=== PATIENT | female | born 1965 | race Caucasian/White ===

== ENCOUNTER 2023-04-29 15:15 | Emergency (ER) | payer OTHER, SELFPAY ==
[2023-04-29 15:21] VITALS: BP 130/79; PULSE 79; RESP 16; O2SAT 100; BMI 39.4
--- NOTE | 2023-04-29 16:34 | XR_ITS ---
The [address] [address] Patient Name: KAUR COOMBS MRN: [id number] date: 1965 Sex: F Assigned Patient Location: ER Current Patient Location: ER Accession/Order Number: [id number] Exam Date: 04/29/2023 17:05 Report Date: 04/29/2023 17:38 At the request of: MARY JANE LOWERY Procedure: XR lumbar spine 2-3V EXAM: XR lumbar spine 2-3V HISTORY: Right lower leg pain and numbness of right foot COMPARISON: None. TECHNIQUE: 3 views FINDINGS: IMPRESSION: Maintenance of the normal lumbar lordosis. Anterolisthesis of L5 on S1 that is poorly measured on this study. Age indeterminate superior compression of the L1 vertebral body. Multilevel intervertebral disc space narrowing, endplate and facet arthropathy. Lumbar lordosis is maintained. Sacroiliac joints are normal. Electronically authenticated by: VALENTINO STRINGER Date: 04/29/2023 17:38
--- NOTE | 2023-04-29 16:36 | ED.GENADUL1 ---
HPI - General Adult General Chief complaint: Extremity Injury, Lower Stated complaint: NUMBNESS IN RIGHT FOOT, LEG CRAMPING Time Seen by Provider: 04/29/23 15:18 Source: patient Mode of arrival: Wheelchair History of Present Illness HPI narrative: 58-year-old female presents for numbness in her right foot and pain in the leg. She's had this for two days. She had a car ride of a few hours. There was no injury. No chest pain or shortness of breath. She's never had a deep vein thrombosis. Symptom is continuous and the pain is moderate. Related Data Previous Rx's Medication Instructions Recorded acetaminophen 300 mg-codeine 30 mg 1 tab PO Q6H PRN pain #20 tabs 04/29/23 tablet methylprednisolone 4 mg tablets in 4 mg PO DAILY #21 ea 04/29/23 a dose pack (Medrol (Monty)) Allergies Allergy/AdvReac Type Severity Reaction Status Date / Time No Known Drug Allergies Allergy Verified 04/29/23 15:21 Review of Systems ROS Narrative A ten point review of systems is negative except as noted above. Exam Narrative Exam Narrative: Nurses note and vital signs reviewed and patient is not hypoxic. General: The patient appears uncomfortable. Skin: Warm, dry, no pallor noted. There is no rash noted. Head: Normocephalic, atraumatic Eye: Normal conjunctiva, no drainage Ears, Nose, Mouth, and Throat: oral mucosa is moist. Nares patent. Cardiovascular: Regular Rate and Rhythm Respiratory: Patient is in no distress, no accessory muscle use, lungs are clear to auscultation, no wheezing, rales or rhonchi Back: non-tender, no bruise or rash or palpable tenderness. GI: soft and nontender Musculoskeletal: the right leg appears normal. There isbruising or rash or erythema or swelling. Dorsalis pedis pulse 2+. Capillary refill brisk. Neurological: A&O, normal speech Psychiatric: Cooperative Constitutional Vital Signs, click to edit/add: Last Vital Signs Pulse 79 04/29/23 15:21 Resp 16 04/29/23 15:21 BP 130/79 04/29/23 15:21 Pulse Ox 100 04/29/23 15:21 O2 Del Method Room Air 04/29/23 15:21 Course Vital Signs Vital signs: Vital Signs Pulse Rate 79 04/29/23 15:21 Respiratory Rate 16 04/29/23 15:21 Blood Pressure 130/79 04/29/23 15:21 Pulse Oximetry 100 04/29/23 15:21 Oxygen Delivery Method Room Air 04/29/23 15:21 Pulse Rate 79 04/29/23 15:21 Respiratory Rate 16 04/29/23 15:21 Blood Pressure 130/79 04/29/23 15:21 Pulse Oximetry 100 04/29/23 15:21 Oxygen Delivery Method Room Air 04/29/23 15:21 Medical Decision Making MDM Narrative Medical decision making narrative: d-dimer is negative. I've no clinical suspicion of deep vein thrombosis. Lumbar film result as discussed thoroughly with the patient and she is referred to PCP. Treatment diagnosis and follow-up were discussed with the patient. Differential Diagnosis Differential Diagnosis: herniated disc, bulging disc, lumbar radiculopathy Lab Data Labs: Lab Results 04/29/23 Range/Units 16:52 D-Dimer 0.48 (<=0.59) mg/L FEU Imaging Data lumbar x-rays: Radiologist's impression: age indeterminate L1 compression fracture and degenerative changes Discharge Plan Discharge Chief Complaint: Extremity Injury, Lower Clinical Impression: Arthritis, lumbar spine, Paresthesia Patient Disposition: Home, Self-Care Time of Disposition Decision: 17:55 Condition: Good Mode of Transportation: Private Vehicle Prescriptions / Home Meds: New acetaminophen-codeine 300-30 mg tablet 1 tab PO Q6H PRN (Reason: pain) Qty: 20 0RF methylprednisolone [Medrol (Monty)] 4 mg tablets,dose pack 4 mg PO DAILY Qty: 21 0RF Instructions: Paresthesia (ED), Lumbar Radiculopathy (ED) Additional Instructions: See the attached list for follow-up Stand Alone Forms: Portal Instructions Referrals: Physician,Non-Staff, MD [Primary Care Provider] - 1 week
[2023-04-29] MEDS: KETOROLAC TROMETHAMINE 60 MG/2 ML VIAL IM (16:50)
[2023-04-29 17:13] LABS: D Dimer 0.48 mg/L FEU (<=0.59)
[2023-04-29 18:08] VITALS: BP 120/75; PULSE 70; RESP 12; O2SAT 96
== END 2023-04-29 18:15 | disposition home or self-care (01) ==
PROVIDERS: Emergency Provider Emergency Medicine
DX: R20.2 Paresthesia of skin (principal); M47.816 Spondylosis without myelopathy or radiculopathy, lumbar region; M48.56XA Collapsed vertebra, not elsewhere classified, lumbar region, initial encounter for fracture
CPT/HCPCS: 36415; 72100; 85378; 96372; 99285

== ENCOUNTER 2023-11-08 06:35 | Emergency (ER) | payer OTHER, SELFPAY ==
[2023-11-08 06:40] VITALS: BP 144/81; PULSE 75; RESP 18; TEMP 36.6; O2SAT 100; BMI 40.3
--- NOTE | 2023-11-08 07:51 | ED.GENADUL1 ---
HPI - General Adult General Chief complaint: Back Pain/Injury Stated complaint: BACK PAIN Time Seen by Provider: 11/08/23 07:26 Source: patient Mode of arrival: walk-in Limitations: no limitations History of Present Illness HPI narrative: Patient is a All systems are negative except as noted/marked. All systems reviewed and otherwise negative. Nurses note and vital signs reviewed and patient is not hypoxic. General: The patient appears well and in no apparent distress. Patient is resting comfortably on cart. Patient is not toxic, lethargic, or listless Skin: Warm, dry, no pallor noted. There is no rash noted. No petechiae, purpura. Head: Normocephalic, atraumatic Eye: Normal conjunctiva, no drainage, EOMI. PERRL Ears, Nose, Mouth, and Throat: oral mucosa is moist. Nares patent. Mouth without vesicles. Cardiovascular: Regular Rate and Rhythm, no murmur, gallop, rub Respiratory: Patient is in no distress, no accessory muscle use, lungs are clear to auscultation, no wheezing, rales or rhonchi Back: non-tender, no CVA tenderness bilaterally to percussion. No CT LS midline pain GI: no tenderness to palpation, no masses appreciated. No rebound, guarding, or rigidity noted. No distention Musculoskeletal: Patient has full range of motion of all of the extremities, no motor, sensory, or focal neurological deficits Neurological: A&O x4, normal speech Psychiatric: Cooperative Related Data Previous Rx's Medication Instructions Recorded lidocaine 5 % topical patch 1 patch topical Q24H #15 ea 11/08/23 (Lidoderm) methocarbamol 750 mg tablet 750 mg PO TID PRN muscle pain #14 11/08/23 tabs Allergies Allergy/AdvReac Type Severity Reaction Status Date / Time No Known Drug Allergies Allergy Verified 11/08/23 06:43 PFSH PFSH Social History Smoking status: Never smoker Exam Constitutional Vital Signs, click to edit/add: Last Vital Signs Temp 97.9 F 11/08/23 06:40 Pulse 75 11/08/23 06:40 Resp 18 11/08/23 06:40 BP 144/81 H 11/08/23 06:40 Pulse Ox 100 11/08/23 06:40 O2 Del Method Room Air 11/08/23 06:40 Course Vital Signs Vital signs: Vital Signs Temperature 97.9 F 11/08/23 06:40 Pulse Rate 75 11/08/23 06:40 Respiratory Rate 18 11/08/23 06:40 Blood Pressure 144/81 H 11/08/23 06:40 Pulse Oximetry 100 11/08/23 06:40 Oxygen Delivery Method Room Air 11/08/23 06:40 Temperature 97.9 F 11/08/23 06:40 Pulse Rate 75 11/08/23 06:40 Respiratory Rate 18 11/08/23 06:40 Blood Pressure 144/81 H 11/08/23 06:40 Pulse Oximetry 100 11/08/23 06:40 Oxygen Delivery Method Room Air 11/08/23 06:40 Discharge Plan Discharge Chief Complaint: Back Pain/Injury Clinical Impression: Pain in right lumbar region of back, Acute right-sided back pain with sciatica Patient Disposition: Home, Self-Care Condition: Fair Prescriptions / Home Meds: New lidocaine [Lidoderm] 5 % adhesive patch,medicated 1 patch topical Q24H Qty: 15 0RF Rx Instructions: leave on most painful area for up to 12 hrs methocarbamol 750 mg tablet 750 mg PO TID PRN (Reason: muscle pain) Qty: 14 0RF Instructions: Sciatica (ED), Acute Low Back Pain (ED), Piriformis Syndrome (ED), Lower Back Exercises (ED) Additional Instructions: Use ice 20 minutes on, 20 minutes off. Do not use heat. Lumbar stretching exercises and piriformis syndrome exercises 3-4 times a day to help with muscle pain or spasm. You need to establish a family doctor or you can see the health department of the county you live in for a family doctor to have routine and preventative testing done. Stand Alone Forms: Portal Instructions Referrals: Jay Pimentel MD [Physician] - 1 week Physician,Non-Staff, [Primary Care Provider] - 1 week
[2023-11-08] MEDS: ORPHENADRINE 60 MG/ 2 ML VIAL IM (07:52)
[2023-11-08] MEDS: KETOROLAC TROMETHAMINE 60 MG/2 ML VIAL IM (07:52)
--- NOTE | 2023-11-15 09:34 | ED_ITS ---
HPI - General Adult General Chief complaint: Back Pain/Injury Stated complaint: BACK PAIN Time Seen by Provider: 11/08/23 07:26 Source: patient Mode of arrival: walk-in Limitations: no limitations History of Present Illness HPI narrative: Patient's ER visit date was November 08, 2023. Patient is a 58-year-old female who is presenting to the ER with chief complaint of Right lower back pain that radiates down to the buttocks and the lateral thigh. This is acute on chronic. Patient states the pain has been there for the past 4 days. Patient is here with her . Patient has no saddle anesthesia or cauda equina. No urinary or bowel complaints. No abdominal pain, nausea or vomiting. Patient has been using heat. Patient been taking ibuprofen with little relief. No other acute complaints. Patient has no PCP. All systems are negative except as noted/marked. All systems reviewed and otherwise negative. Nurses note and vital signs reviewed and patient is not hypoxic. General: The patient appears well and in no apparent distress. Patient is resting comfortably on cart. Patient is not toxic, lethargic, or listless Skin: Warm, dry, no pallor noted. There is no rash noted. No petechiae, p urpura. Head: Normocephalic, atraumatic Eye: Normal conjunctiva, no drainage, EOMI. PERRL Ears, Nose, Mouth, and Throat: oral mucosa is moist. Nares patent. Mouth without vesicles. Cardiovascular: Regular Rate and Rhythm, no murmur, gallop, rub Respiratory: Patient is in no distress, no accessory muscle use, lungs are clear to auscultation, no wheezing, rales or rhonchi Back: Moderate right lower paraspinal lumbar tenderness to palpation. No midline tenderness, no rash, otherwise the rest of her back is non-tender, no CVA tenderness bilaterally to percussion. No CT LS midline pain positive moderate tenderness palpation to the right piriformis muscle.. No left-sided paralumbar tenderness or left-sided piriformis muscle tenderness to palpation. No rash. GI: Obese, soft, no tenderness to palpation, no masses appreciated. No rebound, guarding, or rigidity noted. No distention Musculoskeletal: Patient has full range of motion of all of the extremities, no motor, sensory, or focal neurological deficits Neurological: A&O x4, normal speech Psychiatric: Cooperative Related Data Previous Rx's Medication Instructions Recorded lidocaine 5 % topical patch 1 patch topical Q24H #15 ea 11/08/23 (Lidoderm) methocarbamol 750 mg tablet 750 mg PO TID PRN muscle pain #14 11/08/23 tabs Allergies Allergy/AdvReac Type Severity Reaction Status Date / Time No Known Drug Allergies Allergy Verified 11/08/23 06:43 PFSH PFSH Social History Smoking status: Never smoker Exam Constitutional Vital Signs, click to edit/add: Last Vital Signs Temp 97.9 F 11/08/23 06:40 Pulse 75 11/08/23 06:40 Resp 18 11/08/23 06:40 BP 144/81 H 11/08/23 06:40 Pulse Ox 100 11/08/23 06:40 O2 Del Method Room Air 11/08/23 06:40 Course Vital Signs Vital signs: Vital Signs Temperature 97.9 F 11/08/23 06:40 Pulse Rate 75 11/08/23 06:40 Respiratory Rate 18 11/08/23 06:40 Blood Pressure 144/81 H 11/08/23 06:40 Pulse Oximetry 100 11/08/23 06:40 Oxygen Delivery Method Room Air 11/08/23 06:40 Temperature 97.9 F 11/08/23 06:40 Pulse Rate 75 11/08/23 06:40 Respiratory Rate 18 11/08/23 06:40 Blood Pressure 144/81 H 11/08/23 06:40 Pulse Oximetry 100 11/08/23 06:40 Oxygen Delivery Method Room Air 11/08/23 06:40 Medical Decision Making MDM Narrative Medical decision making narrative: Patient has evidence of sciatica and piriformis syndrome. Education on ice and stretching was done. Patient had education ice, anti-inflammatories, stretching, and patient needs to establish with PCP. Patient not go to work today, patient needs a work note. No questions at discharge. No acute findings, no acute need for imaging at this time. This is acute on chronic right lower back pain with right sciatica, and right piriformis syndrome. No rash. Discharge Plan Discharge Chief Complaint: Back Pain/Injury Clinical Impression: Pain in right lumbar region of back, Acute right-sided back pain with sciatica Patient Disposition: Home, Self-Care Condition: Fair Prescriptions / Home Meds: New lidocaine [Lidoderm] 5 % adhesive patch,medicated 1 patch topical Q24H Qty: 15 0RF Rx Instructions: leave on most painful area for up to 12 hrs methocarbamol 750 mg tablet 750 mg PO TID PRN (Reason: muscle pain) Qty: 14 0RF Instructions: Sciatica (ED), Acute Low Back Pain (ED), Piriformis Syndrome (ED), Lower Back Exercises (ED) Additional Instructions: Use ice 20 minutes on, 20 minutes off. Do not use heat. Lumbar stretching exercises and piriformis syndrome exercises 3-4 times a day to help with muscle pain or spasm. You need to establish a family doctor or you can see the health department of the county you live in for a family doctor to have routine and preventative testing done. Stand Alone Forms: Portal Instructions Referrals: Jay Pmientel MD [Physician] - 1 week Physician,Non-StaffMD [Primary Care Provider] - 1 week Discharge Date/Time: 11/08/23 07:59
== END 2023-11-08 07:59 | disposition home or self-care (01) ==
PROVIDERS: Emergency Provider Emergency Medicine
DX: M54.41 Lumbago with sciatica, right side (principal)
CPT/HCPCS: 96372; 99284